=== PATIENT | female | born 1955 | race African-American/Black ===

== ENCOUNTER 2016-12-09 11:26 | Emergency (ER) | payer OTHER ==
[~2016-12-09] VITALS: Ht 160 cm; Wt 57.6 kg
[2016-12-09 11:57] VITALS: BP 125/74
--- NOTE | 2016-12-09 12:00 | NUR ---
Patient ambulated to bed 07.
--- NOTE | 2016-12-09 12:05 | NUR ---
61F BIB SELF C/O MID-BACK PAIN, THROBBING, RADIATES TO LEFT SHOULDER, 10/10 X THIS MORNING; PT DENIES TRAUMA OR INJURY TO SITE; HX: CHRONIC BACK PAIN, MIGRAINES, TMJ, HTN; PT STATES HAS NAUSEA, BUT DENIES VOMITING/DIARRHEA AT THIS TIME; ABDOMEN SOFT, NON-TENDER, ACTIVE BOWEL SOUNDS X 4 QUADRANTS; PT A&OX4, PERRLA, BL LUNG SOUNDS CLEAR, RR EVEN/UNLABORED, BL RISE/CHEST EQUAL AT THIS TIME; SKIN IS WARM/DRY/INTACT; PT RESTING IN BED W/ HOB ELEVATED AND IN LOWEST POSITION; POSITIONED FOR COMFORT; ER MD MADE AWARE OF STATUS. WILL CONTINUE TO MONITOR.
--- NOTE | 2016-12-09 12:25 | NUR ---
Dr. Xiong evaluating patient at bedside.
--- NOTE | 2016-12-09 13:47 | NUR ---
ER MD DR. DORANTES EVALUATING PT AT BEDSIDE.
[2016-12-09] MEDS ORDERED: HYDROmorphone 1 MG/ML AMP IVP ONE (13:55)
[2016-12-09] MEDS ORDERED: ONDANSETRON 4 MG/2 ML VIAL IVP ONE (13:55)
[2016-12-09] MEDS ORDERED: NACL 0.9% 1,000 ML IV ONE (13:55)
[2016-12-09] MEDS ORDERED: DIAZEPAM PFS 10 MG/2 ML SYR IVP ONE (13:55)
[2016-12-09] MEDS ORDERED: HYDROmorphone 1 MG/ML AMP ONE (14:22)
[2016-12-09] MEDS ORDERED: DIAZEPAM PFS 10 MG/2 ML SYR ONE (14:23)
[2016-12-09] MEDS ORDERED: ONDANSETRON 4 MG/2 ML VIAL ONE (14:24)
--- NOTE | 2016-12-09 14:50 | NUR ---
PT STATES PAIN 8/10 AT THIS TIME; REPOSITIONED FOR COMFORT; ER MD DR. DORANTES NOTIFIED; WILL CONTINUE TO MONITOR.
--- NOTE | 2016-12-09 14:53 | NUR ---
Note [email or web address] in EDM - 12/09/16 at 1456 by MEDSS PT HR 48 ON MONITOR AT THIS TIME; ER MD DR. DORANTES NOTIFIED; IV FLUIDS BOLUS AT THIS TIME PER ER MD DR. DORANTES ORDER; PT DENIES ADVERSE DRUG REACTIONS AT THIS TIME; STATES "I DON'T FEEL DIFFERENT AFTER THE MEDICATIONS"; RR EVEN/UNLABORED;
--- NOTE | 2016-12-09 14:53 | NUR ---
PT HR 48 ON MONITOR AT THIS TIME; ER MD DR. DORANTES NOTIFIED; IV FLUIDS BOLUS AT THIS TIME PER ER MD DR. DORANTES ORDER; PT DENIES ADVERSE DRUG REACTIONS AT THIS TIME; STATES "I DON'T FEEL DIFFERENT AFTER THE MEDICATIONS YET"; RR EVEN/UNLABORED; WILL CONTINUE TO MONITOR.
--- NOTE | 2016-12-09 15:59 | NUR ---
PT AMBULATED TO RESTROOM AT THIS TIME; STEADY GAIT; WILL CONTINUE TO MONITOR.
--- NOTE | 2016-12-09 16:13 | NUR ---
PT STATES HR LOWER THAN USUAL BECAUSE PT TOOK 2 ATENOLOL; PT STATES "WHEN MY HEART RATE GETS LOW LIKE THIS, I JUST HAVE TO AJUST MY ATENOLOL AND TAKE ONE. THEN IT WILL GO BACK TO NORMAL"; PT STATES CHRONIC HEADACHES "EVERYDAY" BUT STATES "I DON'T FEEL ANY DIFFERENT WITH MY HEART RATE LOW"; HR 52 AT THIS TIME. ER MD NOTIFIED; WILL CONTINUE TO MONITOR.
--- NOTE | 2016-12-09 17:10 | NUR ---
IV removed, catheter intact and site benign. Applied folded 4x4 gauze and tape to stop bleeding. PT TOLERATED PROCEDURE WELL.
[2016-12-09 17:15] VITALS: BP 144/98
--- NOTE | 2016-12-09 17:15 | NUR ---
Patient discharged with HR 54; PT STATES " I FEEL FINE WITH MY HEART RATE LIKE THAT"; ER MD DR. DORANTES NOTIFIED. Written and verbal after care instructions given and explained.Patient alert, oriented and verbalized understanding of instructions. Ambulatory with steady gait. All questions addressed prior to discharge. ID band removed. Patient advised to follow up with PMD. Rx VALIUM 5MG TAB & PERCOCET 7.5MG-325 MG TAB given. Patient educated on indication of medication including possible reaction and side effects. Opportunity to ask questions provided and answered.
== END 2016-12-09 17:15 | disposition home or self-care (01) ==
LOC: MED 11:26
DX: G89.29 Other chronic pain (principal); M54.9 Dorsalgia, unspecified; M54.2 Cervicalgia; R11.0 Nausea; G43.909 Migraine, unspecified, not intractable, without status migrainosus; Z88.0 Allergy status to penicillin; Z90.49 Acquired absence of other specified parts of digestive tract
CPT/HCPCS: 96361; 96374; 96375; 99284; J1170; J2405; J3360; J7030; 99283

== ENCOUNTER 2018-04-13 11:47 | Emergency (ER) | payer OTHER ==
[~2018-04-13] VITALS: Ht 160 cm; Wt 65.3 kg
[2018-04-13 11:54] VITALS: BP 150/84
--- NOTE | 2018-04-13 12:09 | NUR ---
62/F BIB SELF C/O SEVERE HEADACHE X 12 DAYS THAT RADIATES DOWN LEFT SIDE OF NECK, LEFT SHOULDER, LEFT ARM AND NAUSEA. HX: HTN.DENIES V/D; SKIN IS PINK/WARM/DRY; AAOX4 WITH EVEN AND STEADY GAIT; LUNGS CLEAR BL; PT DENIES ANY FEVER, CP, SOB, OR COUGH AT THIS TIME; PATIENT STATES PAIN OF 10/10 AT THIS TIME; PATIENT POSITIONED FOR COMFORT; HOB ELEVATED; BEDRAILS UP X2; BED DOWN. ER MD MADE AWARE OF PT STATUS.
--- NOTE | 2018-04-13 13:01 | NUR ---
Patient being evaluated by DR MARTINES at bedside.
[2018-04-13] MEDS ORDERED: METOCLOPRAMIDE 10 MG/2 ML INJ VIAL IVP ONE ×2 (13:10→15:55)
[2018-04-13] MEDS ORDERED: diphenhydrAMINE 50 MG/ML VIAL IVP ONE ×2 (13:10→15:55)
[2018-04-13] MEDS ORDERED: LORazepam 2 MG/ML VIAL IVP ONE (13:10)
[2018-04-13] MEDS ORDERED: NACL 0.9% 1,000 ML IV ONE ×2 (13:10→15:55)
[2018-04-13] MEDS ORDERED: KETOROLAC 30 MG/ML VIAL IVP ONE (13:10)
[2018-04-13 13:37] LABS: BASOPHILS % (AUTO) 0.6 % (0.0-2.0); EOSINOPHILS # (AUTO) 0.2 K/uL (0-0.4); EOSINOPHILS % (AUTO) 2.7 % (0.0-4.0); HEMATOCRIT 43.4 % (36-48); HEMOGLOBIN 13.7 g/dL (12.0-16.0); LYMPHOCYTES # (AUTO) 2.4 K/uL (2.5-16.5); LYMPHOCYTES % (AUTO) 41.3 % (20.5-51.1); MEAN CORPUSCULAR HEMOGLOBIN 28 pg (27-31); MEAN CORPUSCULAR HGB CONC 32 g/dL (33-37); MEAN CORPUSCULAR VOLUME 88.5 fL (80-94); MONOCYTES # (AUTO) 0.4 K/uL (0.8-1.0); MONOCYTES % (AUTO) 7.6 % (1.7-9.3); NEUTROPHILS # (AUTO) 2.7 K/uL (1.8-7.7); NEUTROPHILS % (AUTO) 47.8 % (42.2-75.2); PLATELET COUNT (AUTO) 177 K/uL (140-450); RED CELL DISTRIBUTION WIDTH 14.6 % (11.6-13.7); WHITE BLOOD COUNT (AUTO) 5.7 K/uL (4.8-10.8)
[2018-04-13 14:01] LABS: ALBUMIN 4.4 g/dL (3.4-5.0); ANION GAP 10.9 (8-16); CARBON DIOXIDE 29.4 mmol/L (21-32); POTASSIUM 4.3 mmol/L (3.5-5.1); TOTAL BILIRUBIN 0.6 mg/dL (0.0-1.0)
[2018-04-13 14:50] LABS: APPEARANCE,URINE CLEAR (CLEAR); BILIRUBIN,URINE NEGATIVE (NEGATIVE); BLOOD, URINE NEGATIVE (NEGATIVE); COLOR,URINE YELLOW (YELLOW); LEUKOCYTE ESTERASE ,URINE NEGATIVE (NEGATIVE); NITRITE, URINE NEGATIVE (NEGATIVE); UGLUCOSE NEGATIVE (NEGATIVE)
--- NOTE | 2018-04-13 17:10 | NUR ---
Patient discharged with v/s stable. Written and verbal after care instructions given and explained. Patient alert, oriented and verbalized understanding of instructions. Ambulatory with steady gait. All questions addressed prior to discharge. ID band removed. Patient advised to follow up with PMD. Rx of NAPROXEN; REGLAN, MEDROL, BENADRYL given. Patient educated on indication of medication including possible reaction and side effects. Opportunity to ask questions provided and answered.
[2018-04-13 17:11] VITALS: BP 149/83
== END 2018-04-13 17:10 | disposition home or self-care (01) ==
LOC: MED 11:47
DX: G43.909 Migraine, unspecified, not intractable, without status migrainosus (principal); M19.90 Unspecified osteoarthritis, unspecified site; Z88.0 Allergy status to penicillin; Z88.8 Allergy status to other drugs, medicaments and biological substances; Z90.49 Acquired absence of other specified parts of digestive tract
CPT/HCPCS: 36415; 80053; 81003; 85025; 85651; 96374; 96375; 96376; 99285; J1200; J1885; J2060; J2765; J7030

== ENCOUNTER 2018-08-04 15:20 | Emergency (ER) | payer OTHER ==
[~2018-08-04] VITALS: Ht 160 cm; Wt 59.0 kg
--- NOTE | 2018-08-04 15:29 | NUR ---
PT AMBULATES TO BED 6
[2018-08-04 15:30] VITALS: BP 152/91
--- NOTE | 2018-08-04 15:35 | NUR ---
PT IS A 63 Y/O FEMALE WHO PRESENTS TO THE ED C/O HEADACHE. PT STATES THAT SHE HAS THEM EVERYDAY BUT WORSE TODAY. PT REPORTS 10/10 ACHING HEADACHE PAIN THAT DOES NOT RADIATE. TOOK PERCOCET WITH NO RELIEF. PT DENIES CP, SOB, REPORTS VOMITING DENIES NAUSEA/DIARRHEA. PT AWAKE AND ALERT, RR EVEN/UNLABORED. PT REPOSITIONED FOR COMFORT, BED IN LOWEST POSITION. ER MD DR. BLANC NOTIFIED. WILL CONTINUE TO MONITOR. PMH---HTN, CLUSTER HEADACHE ALLERGIES---PCN, LISINOPRIL, CLONIDINE
[2018-08-04] MEDS ORDERED: MORPHINE SULFATE 4 MG/ML SYR IM ONE (16:15)
[2018-08-04] MEDS ORDERED: KETOROLAC 30 MG/ML VIAL IVP ONE (16:20)
[2018-08-04] MEDS ORDERED: diphenhydrAMINE 50 MG/ML VIAL IVP ONE (16:20)
[2018-08-04] MEDS ORDERED: METOCLOPRAMIDE 10 MG/2 ML INJ VIAL IVP ONE (16:20)
[2018-08-04] MEDS ORDERED: LORazepam 2 MG/ML VIAL IVP ONE (16:20)
[2018-08-04 17:24] VITALS: BP 139/85
--- NOTE | 2018-08-04 17:26 | NUR ---
Patient discharged with v/s stable. Written and verbal after care instructions given and explained. Patient verbalized understanding. Carried with steady gait. All questions addressed prior to discharge. Advised to follow up with PMD. PTS FRIEND STATES SHE WILL DRIVE PT HOME. PT ESCORTED TO CAR WITH FRIEND AND SANTI EMT.
== END 2018-08-04 17:26 | disposition home or self-care (01) ==
LOC: MED 15:20
DX: G44.009 Cluster headache syndrome, unspecified, not intractable (principal); I10 Essential (primary) hypertension; Z88.0 Allergy status to penicillin; Z88.8 Allergy status to other drugs, medicaments and biological substances
CPT/HCPCS: 96374; 96375; 99283; J1200; J1885; J2060; J2765; J2270

== ENCOUNTER 2018-12-20 17:48 | Emergency (ER) | payer OTHER ==
[~2018-12-20] VITALS: Ht 160 cm; Wt 59.9 kg
[2018-12-20 18:05] VITALS: BP 150/72
--- NOTE | 2018-12-20 18:29 | NUR ---
PT TO ER BED 3
--- NOTE | 2018-12-20 18:40 | NUR ---
PATIENT PRESENTS TO ED WITH SEVERE HEADACHE AND NECK PAIN X 4 DAYS. +N/+V; +DECREASED APPETITE.+INSOMNIA. PATIENT STATES PAIN OF 10/10 AT THIS TIME; VERBALIZED USING PERCOSET AT HOME WITH NO RELIEF. VSS; PATIENT POSITIONED FOR COMFORT; HOB ELEVATED; BEDRAILS UP X1; BED DOWN. ER MD TO EVALUATE PT. MEDHX OF MIGRAINE, HTN
--- NOTE | 2018-12-20 19:21 | NUR ---
Dr. Davis examining patient.
[2018-12-20] MEDS ORDERED: diphenhydrAMINE 50 MG/ML VIAL IVP ONE (19:25)
[2018-12-20] MEDS ORDERED: fentaNYL 0.05 MG/ML VIAL IVP ONE (19:25)
[2018-12-20] MEDS ORDERED: NACL 0.9% 500 ML IV ONE (19:25)
[2018-12-20] MEDS ORDERED: PROCHLORPERAZINE 10 MG/2 ML VIAL IVP ONE (19:25)
--- NOTE | 2018-12-20 19:26 | NUR ---
ASSUMED CARE OF PT FROM ANNETTE KENNEDY
--- NOTE | 2018-12-20 19:26 | NUR ---
REPORT GIVEN TO ANNETTE FREGOSO. TRANSFER OF CARE AT THIS TIME.
--- NOTE | 2018-12-20 20:21 | NUR ---
PT REPORTING RELIEF OF SYMPTOMS POST MEDICATION ADMIN.
--- NOTE | 2018-12-20 20:25 | NUR ---
DAUGHTER AT BEDSIDE FOR TRANSPORTATION HOME.
--- NOTE | 2018-12-20 20:30 | NUR ---
IV removed, catheter intact and site benign. Applied folded 4x4 gauze and tape to stop bleeding.
[2018-12-20 20:31] VITALS: BP 122/77
--- NOTE | 2018-12-20 20:31 | NUR ---
Patient discharged with v/s stable. Written and verbal after care instructions given and explained. Patient verbalized understanding. Ambulatory with steady gait. All questions addressed prior to discharge. Advised to follow up with PMD.
== END 2018-12-20 20:31 | disposition home or self-care (01) ==
LOC: MED 17:48
DX: G43.909 Migraine, unspecified, not intractable, without status migrainosus (principal); I10 Essential (primary) hypertension; M79.7 Fibromyalgia; Z88.0 Allergy status to penicillin; Z88.8 Allergy status to other drugs, medicaments and biological substances
CPT/HCPCS: 96361; 96374; 96375; 99283; J0780; J1200; J3010

== ENCOUNTER 2019-05-10 19:49 | Emergency (ER) | payer OTHER ==
[~2019-05-10] VITALS: Ht 160 cm; Wt 60.8 kg
[2019-05-10 20:05] VITALS: BP_SYST 176; BP_SYST 188; BP_DIAS 77
--- NOTE | 2019-05-10 20:05 | NUR ---
TO BED #08 AMBULATORY
--- NOTE | 2019-05-10 20:19 | NUR ---
FIRST CONTACT PATIENT C/O POSTERIOR DELAROSA RADIATING TO THE FRONT X 2 DAYS. PATIENT STATES "I TAKE PERCOCET FOR PAIN BUT PAIN STILL THERE, I USUALLY CAN CONTROL IT AT HOME." PATIENT DENIES ANY DIZZINESS OR BLURRED VISION. PATIENT INFORMED THAT HER BP IS HIGH. PATIENT GCS 15, AAOX4,AMBULATORY WITH STEADY GAIT. PATIENT STATES SHE IS ACCOMPANIED BY BOYFRIEND WHO IS IN THE LOBBY. PATIENT DENEIS ANY CP/SOB, NO N/V/D. PATIENT UPDATED WITH PLAN OF CARE, NO ACUTE DISTRESS NOTED, WILL CONTINUE TO MONITOR
[2019-05-10] MEDS ORDERED: NACL 0.9% 1,000 ML IV ONE (20:37)
[2019-05-10] MEDS ORDERED: KETOROLAC 30 MG/ML VIAL IVP ONE (20:40)
[2019-05-10] MEDS ORDERED: METOCLOPRAMIDE 10 MG/2 ML INJ VIAL IVP ONE (20:40)
[2019-05-10] MEDS ORDERED: diphenhydrAMINE 50 MG/ML VIAL IVP ONE (20:40)
[2019-05-10] MEDS ORDERED: MORPHINE SULFATE 4 MG/ML SYR IVP ONE (20:40)
[2019-05-10 22:15] VITALS: BP 159/87
--- NOTE | 2019-05-10 22:15 | NUR ---
Patient discharged with v/s stable. Written and verbal after care instructions given and explained. Patient alert, oriented and verbalized understanding of instructions. Ambulatory with steady gait. All questions addressed prior to discharge. ID band removed. Patient advised to follow up with PMD. Rx of REGLAN given. Patient educated on indication of medication including possible reaction and side effects. Opportunity to ask questions provided and answered.
== END 2019-05-10 22:15 | disposition home or self-care (01) ==
LOC: MED 19:49
DX: R51 Headache (principal); I10 Essential (primary) hypertension; Z90.49 Acquired absence of other specified parts of digestive tract; Z88.0 Allergy status to penicillin; Z88.8 Allergy status to other drugs, medicaments and biological substances
CPT/HCPCS: 96361; 96374; 96375; 99283; J1200; J1885; J2270; J2765; J7030